=== PATIENT | male | born 1940 | race Caucasian/White ===

== ENCOUNTER → 2017-04-16 | Outpatient (CLI) | payer MEDICARE, BC | LOC: RAD 12:00 | DX: R01.0 Benign and innocent cardiac murmurs (principal); I35.0 Nonrheumatic aortic (valve) stenosis; I07.1 Rheumatic tricuspid insufficiency ==

== ENCOUNTER → 2019-03-10 | Outpatient (CLI) | payer MEDICARE, BC | LOC: VAS 16:43 | DX: I08.3 Combined rheumatic disorders of mitral, aortic and tricuspid valves (principal) ==

== ENCOUNTER → 2020-05-31 | Outpatient (CLI) | payer MEDICARE, BC | LOC: RAD 15:39 | DX: I08.0 Rheumatic disorders of both mitral and aortic valves (principal) ==

== ENCOUNTER 2020-08-05 03:45 | Emergency (ER) | payer MEDICARE, BC ==
[~2020-08-05] VITALS: Ht 177.8 cm; Wt 100.4 kg
[2020-08-05] MEDS ORDERED: RAMIPRIL10 MG PO (03:59)
[2020-08-05] MEDS ORDERED: LEVSIN0.125 M2 PO (03:59)
[2020-08-05] MEDS ORDERED: ANASPAZ0.125 M1 PO (04:00)
[2020-08-05 05:00] LABS: PH-URINE 5.5 (5.0 - 8.0); URINE APPEARANCE CLEAR; URINE BILIRUBIN NEGATIVE (NEGATIVE); URINE BLOOD 250 ery/uL (NEGATIVE); URINE COLOR YELLOW; URINE GLUCOSE NEGATIVE (NEGATIVE); URINE KETONE NEGATIVE (NEGATIVE); URINE LEUKOCYTE ESTERASE 1+ (NEGATIVE); URINE NITRATE NEGATIVE (NEGATIVE); URINE PROTEIN(semi-quant) TRACE mg/dL (NEGATIVE); URINE UROBILINOGEN NORMAL (NORMAL)
[2020-08-05 05:05] VITALS: BP 154/86
== END 2020-08-05 05:20 | disposition home or self-care (01) ==
LOC: ED 03:45
PROVIDERS: Physician Assistant
DX: R33.9 Retention of urine, unspecified (principal); I10 Essential (primary) hypertension

== ENCOUNTER 2020-08-06 21:14 | Emergency (ER) | payer MEDICARE, BC ==
[~2020-08-06 21:14] MED LIST: ANASPAZ0.125 M1 PO; LEVSIN0.125 M2 PO; RAMIPRIL10 MG PO
[2020-08-06 23:04] VITALS: BP 155/83
== END 2020-08-06 23:04 | disposition home or self-care (01) ==
LOC: ED 21:14
DX: T83.098A Other mechanical complication of other urinary catheter, initial encounter (principal); R33.9 Retention of urine, unspecified; Y84.6 Urinary catheterization as the cause of abnormal reaction of the patient, or of later complication, without mention of misadventure at the time of the procedure

== ENCOUNTER 2020-08-08 09:15 | Outpatient (RCR) | payer MEDICARE, BC ==
[2020-08-07 03:54] VITALS: BP 126/75
--- NOTE | 2020-08-07 04:14 | NUR ---
NEW STAT LOCK PLACED ON RIGHT UPPER LEG FOR AGUILAR CATHETER SECUREMENT. PATIENT WITHOUT OTHER NEEDS AT THIS TIME.
[~2020-08-08] VITALS: Ht 177.8 cm; Wt 100.4 kg
[2020-08-08] MEDS ORDERED: TERAZOSIN HYDRO10 MG PO (10:41)
[2020-08-08] MEDS ORDERED: RAMIPRIL5 MG PO (10:41)
[2020-08-08] MEDS ORDERED: ATORVASTATIN CA10 MG PO (10:42)
[2020-08-08] MEDS ORDERED: PRILOSEC 20MG20 MG PO (10:52)
[2020-08-08 11:07] VITALS: BP 105/64
== END 2020-08-23 | disposition home or self-care (01) ==
LOC: AMSURD
DX: R33.9 Retention of urine, unspecified (principal); T83.091A Other mechanical complication of indwelling urethral catheter, initial encounter

== ENCOUNTER → 2021-06-06 | Outpatient (CLI) | payer MEDICARE, BC ==
[~2021-06-06] MED LIST changes: +ATORVASTATIN CA10 MG PO; +PRILOSEC 20MG20 MG PO; +RAMIPRIL5 MG PO; +TERAZOSIN HYDRO10 MG PO
== END ==
LOC: VAS 10:39 → RAD 11:00
DX: I35.0 Nonrheumatic aortic (valve) stenosis (principal)

== ENCOUNTER → 2022-06-22 | Outpatient (CLI) | payer MEDICARE, BC | LOC: VAS 08:00 → RAD 08:00 → VAS 09:07 | DX: I35.0 Nonrheumatic aortic (valve) stenosis (principal) ==

== ENCOUNTER → 2022-11-08 | Outpatient (CLI) | payer MEDICARE, BC | LOC: VAS 10:40 → RAD 11:00 | DX: M71.21 Synovial cyst of popliteal space [Baker], right knee (principal) ==

== ENCOUNTER → 2023-05-30 | Outpatient (CLI) | payer MEDICARE, BC | LOC: RAD 11:00 | DX: R60.9 Edema, unspecified (principal) ==

== ENCOUNTER 2023-09-06 17:00 | Emergency (ER) | payer MEDICARE, BC ==
[~2023-09-06] VITALS: Ht 177.8 cm; Wt 90.9 kg
[~2023-09-06 17:00] MED LIST changes: +ALTACE 10MG TAB10 MG PO; +CENTRUM ADULTS1 EACH PO; +FISH OIL + D31 EACH PO; +FLONASE SENSIM5.9 ML NS; +MELOXICAM15 MG PO; +NATURAL IRON65 MG PO; +NEURONTIN100 M1 PO; +PRILOSEC OTC20 MG PO
[2023-09-06 18:07] LABS: HEMATOCRIT 34.3 % (42.0-52.0); HEMOGLOBIN 12.7 g/dL (13.5-18.0); MEAN CELL VOLUME 84 fl (78-100); MEAN CORPUSCULAR HEMOGLOBIN 31 pg (27-31); MEAN CORPUSCULAR HGB CONC 37 g/dL (33-37); MEAN PLATELET VOLUME 9.5 fl (7.4-10.4); PLATELET COUNT 228 K/mm3 (130-400); RED BLOOD COUNT 4.08 M/mm3 (4.20-5.60); RED CELL DISTRIBUTION WIDTH 12.7 % (11.5-14.5); WHITE BLOOD COUNT 11.5 K/mm3 (4.8-10.8)
[2023-09-06 18:11] LABS: ALBUMIN 3.9 g/dL (3.4-4.8)
[2023-09-06 18:12] LABS: CALCIUM 8.4 mg/dL (8.3-10.5)
[2023-09-06 18:13] LABS: GLUCOSE 93 mg/dL (75-110); TOTAL PROTEIN 5.9 g/dL (6.2-8.1)
[2023-09-06 18:14] LABS: CARBON DIOXIDE 18 mmol/L (23-31)
[2023-09-06 18:15] LABS: TOTAL BILIRUBIN 2.1 mg/dL (0.2-1.2)
[2023-09-06 18:19] LABS: AST-SGOT 96 U/L (5-34)
[2023-09-06 18:20] LABS: ALT/SGPT 36 U/L (0-55)
[2023-09-06 18:25] LABS: TROPONIN-I < 0.030 ng/mL (0.00-0.033)
[2023-09-06 18:37] LABS: URINE APPEARANCE CLOUDY (CLEAR); URINE COLOR YELLOW (YELLOW)
[2023-09-06 18:38] LABS: PH-URINE 6.5 (5.0 - 8.0); URINE BILIRUBIN NEGATIVE (NEGATIVE); URINE GLUCOSE NEGATIVE (NEGATIVE); URINE KETONE 2+ (NEGATIVE); URINE PROTEIN(semi-quant) 2+ (NEGATIVE)
[2023-09-06 18:39] LABS: URINE BLOOD TRACE (NEGATIVE); URINE LEUKOCYTE ESTERASE TRACE (NEGATIVE); URINE NITRATE NEGATIVE (NEGATIVE); URINE WBC 31-50 /hpf (0-3)
[2023-09-06 18:43] LABS: SODIUM 110 mmol/L (136-145)
[2023-09-06 18:49] LABS: LYMPHOCYTE 5 % (20-51); MONOCYTE 6 % (3-10); NEUTROPHILS 89 % (42-75)
[2023-09-06 18:50] LABS: ACANTHROCYTES 3+; OVALOCYTES 1+
[2023-09-06 21:17] LABS: ALBUMIN 3.6 g/dL (3.4-4.8)
[2023-09-06 21:19] LABS: CALCIUM 8.2 mg/dL (8.3-10.5)
[2023-09-06 21:20] LABS: TOTAL PROTEIN 5.5 g/dL (6.2-8.1)
[2023-09-06 21:44] LABS: TOTAL BILIRUBIN 1.7 mg/dL (0.2-1.2)
[2023-09-06 22:23] VITALS: BP 143/67
== END 2023-09-06 22:23 | disposition short-term general hospital (02) ==
LOC: ED 17:00
PROVIDERS: Physician Assistant
DX: E87.1 Hypo-osmolality and hyponatremia (principal); E80.6 Other disorders of bilirubin metabolism; M62.82 Rhabdomyolysis; N39.0 Urinary tract infection, site not specified; S21.91XA Laceration without foreign body of unspecified part of thorax, initial encounter; S61.512A Laceration without foreign body of left wrist, initial encounter; W18.40XA Slipping, tripping and stumbling without falling, unspecified, initial encounter; W22.03XA Walked into furniture, initial encounter
CPT/HCPCS: J0696; J7131